=== PATIENT | female | born 1985 | race Caucasian/White ===

== ENCOUNTER 2023-10-16 04:09 | Emergency (ER) | payer OTHER ==
[2023-10-16 04:28] VITALS: BP 134/72; PULSE 76; RESP 14; TEMP 98.4; BMI 22.7
[2023-10-16] MEDS ORDERED: ACETAMINOPHEN 500 MG TABLET (FP) ONE (06:06)
[2023-10-16] MEDS: ACETAMINOPHEN 500 MG TABLET (FP) PO ONE (06:08)
[2023-10-16 06:34] LABS: PH,URINE 6.5 (5.0-8.0); URINE APPEARANCE CLEAR; URINE BILIRUBIN NEGATIVE (NEGATIVE); URINE COLOR YELLOW; URINE GLUCOSE (UA) NEGATIVE (NEGATIVE); URINE KETONE NEGATIVE (NEGATIVE); URINE LEUK ESTERASE NEGATIVE (NEGATIVE); URINE NITRITE NEGATIVE (NEGATIVE); URINE PROTEIN NEGATIVE (NEGATIVE); URINE UROBILINOGEN 0.2 mg/dL (0.2-1.0)
[2023-10-16 07:10] LABS: HCG,QUALITATIVE URINE Negative
[2023-10-16] MEDS ORDERED: LIDOCAINE 5% TOPICAL PATCH ONE (07:25)
[2023-10-16] MEDS ORDERED: IBUPROFEN 600 MG TABLET (FP) PO ONE (07:25)
[2023-10-16] MEDS: IBUPROFEN 600 MG TABLET (FP) PO ONE (07:35)
[2023-10-16] MEDS: LIDOCAINE 5% TOPICAL PATCH TP ONE (07:35)
[2023-10-16] MEDS ORDERED: LIDOCAINE PATCH REMOVAL MC ONE (22:00)
== END 2023-10-16 07:50 | disposition home or self-care (01) ==
LOC: JER 04:09
DX: R10.31 Right lower quadrant pain (principal); M54.50 Low back pain, unspecified; M25.551 Pain in right hip; M62.838 Other muscle spasm; V49.40XA Driver injured in collision with unspecified motor vehicles in traffic accident, initial encounter
CPT/HCPCS: 81003; 84703; 99284-25

== ENCOUNTER 2023-10-25 20:01 | Emergency (ER) | payer OTHER ==
[2023-10-25 20:06] VITALS: BP 129/82; PULSE 79; RESP 18; TEMP 98; BMI 32.4
[2023-10-25] MEDS ORDERED: ACETAMINOPHEN 500 MG TABLET (FP) ONE (22:15)
[2023-10-25] MEDS: ACETAMINOPHEN 500 MG TABLET (FP) PO ONE (22:20)
[2023-10-25 22:27] LABS: PH,URINE 5.5 (5.0-8.0); URINE APPEARANCE CLEAR; URINE BILIRUBIN NEGATIVE (NEGATIVE); URINE COLOR YELLOW; URINE GLUCOSE (UA) NEGATIVE (NEGATIVE); URINE KETONE TRACE (NEGATIVE); URINE LEUK ESTERASE NEGATIVE (NEGATIVE); URINE NITRITE NEGATIVE (NEGATIVE); URINE PROTEIN NEGATIVE (NEGATIVE); URINE UROBILINOGEN 0.2 mg/dL (0.2-1.0)
[2023-10-25 22:54] LABS: HCG,QUALITATIVE URINE Negative
== END 2023-10-26 02:20 | disposition home or self-care (01) ==
LOC: JERFT 20:01 → JER 20:01
DX: S70.01XA Contusion of right hip, initial encounter (principal); S30.0XXA Contusion of lower back and pelvis, initial encounter; V47.5XXA Car driver injured in collision with fixed or stationary object in traffic accident, initial encounter; Y92.412 Parkway as the place of occurrence of the external cause
CPT/HCPCS: 72128-TC; 72131-TC; 72192-TC; 81003; 84703; 87086; 99284-25